=== PATIENT | male | born 1985 | race American Indian/Alaskan Native ===

== ENCOUNTER 2016-03-11 06:54 | Emergency (ER) | payer SELFPAY ==
[2016-03-11 07:00] VITALS: BP 125/84
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
== END 2016-03-11 09:05 | disposition left against medical advice (07) ==
LOC: ED 06:54
DX: H91.92 Unspecified hearing loss, left ear (principal); Z53.21 Procedure and treatment not carried out due to patient leaving prior to being seen by health care provider